=== PATIENT | male | born 1980 | race African-American/Black ===

== ENCOUNTER → 2019-11-13 | Outpatient (CLI) | payer OTHER ==
--- NOTE | 2019-11-13 22:26 | CONS ---
CONSULTATION REASON FOR CONSULTATION: Sleep apnea. This is a 39-year-old -[place] male patient referred to me for concerns about sleep apnea. He snores very loudly and he lives with two of his daughters, who confirmed the loud snoring. He has been also noted to quit breathing at times; however, this has not been a consistent thing. He goes to bed between midnight and 1 a.m. and he wakes up at 5 a.m. in the morning. On weekends he gets out of bed around 6 a.m. He comes in with a positive family history that his father and brother have obstructive sleep apnea. No major hypersomnia or sleepiness during the day. No falling asleep while driving. His Denver score is only 2. No sleep paralysis. No hallucinations. No cataplexy. No recent weight gain or weight loss. No other major comorbidities. PAST MEDICAL HISTORY: Negative. PAST SURGICAL HISTORY: Stomach surgery at a young age. DRUG ALLERGIES: NOT KNOWN. OUTPATIENT MEDICATION: Outpatient medications includes omeprazole 20 mg p.o. daily. SOCIAL HISTORY: Nonsmoker. No history of alcoholism. No history of IV drugs. FAMILY HISTORY: Positive for obstructive sleep apnea in his father and a brother. REVIEW OF SYSTEMS: Fourteen-point review of systems was done. Positive findings were all mentioned above in the history of present illness. He has no grinding of the teeth. No restlessness in the lower extremities. No anxiety or panic. He has occasional heartburn, for which he is taking omeprazole. No other seizure activity, head trauma, meningitis, recent weight gain or weight loss, sleep paralysis, hallucinations or cataplexy. Denver score is only 2. PHYSICAL EXAMINATION: VITAL SIGNS: BP is 123/85, pulse 95, respirations 14, temperature 98.2, saturation 95% on room air. Height is 5 feet 7 inches, weight 223. Denver score is 2. BMI is 42.5. Neck size is 17. GENERAL APPEARANCE: Calm, comfortable. HEAD: Atraumatic, normocephalic. Mallampati class IV. LUNGS: Clear to auscultation. HEART: Heart sounds are regular rate and rhythm. Normal S1, S2. No S3, S4. No murmurs. ABDOMEN: Soft, nontender. No organomegaly. EXTREMITIES: No edema. No cyanosis or clubbing. NEUROLOGIC: Awake and alert. There is no focal neurological deficit. PSYCHIATRIC: Negative for anxiety or depression. IMPRESSION: 1. Loud snoring with a question of obstructive sleep apnea, under investigation. 2. No major hypersomnia. Denver score is 2. 3. Occasional heartburn. PLAN: 1. Encourage weight loss. 2. Sleep on the side. 3. Avoid alcoholic beverages or muscle relaxants at night time. 4. Implement good sleep hygiene measures. 5. Home sleep study to rule out the possibility of obstructive sleep apnea. Further recommendations are to follow. My overall suspicion for symptomatic obstructive sleep apnea is low. MMODL / IJN: [id number] /
== END | disposition home or self-care (01) ==
LOC: SLEEP 16:26
PROVIDERS: ATTEND Internal Medicine Critical Care Medicine
DX: R06.83 Snoring (principal); Z79.899 Other long term (current) drug therapy
CPT/HCPCS: 99211

== ENCOUNTER 2021-02-01 22:43 | Emergency (ER) | payer BC, OTHER ==
[2021-02-01 22:49] VITALS: BP 132/85; PULSE 61; RESP 18; TEMP 98.3
--- NOTE | 2021-02-01 23:02 | ED ---
Skin/Abscess/FB HPI - General Chief complaint: Skin/Abscess/Foreign Body Stated complaint: Lump on right arm Time Seen by Provider: 02/01/21 22:50 Source: patient Mode of arrival: ambulatory Limitations: no limitations - History of Present Illness Initial comments: 40yo male presenting for bump in left armpit. pt states he had his second moderna shot on tuesday. pt states he felt a lump in his armpit today. wanted it checked out. denies pain. pt denies additional complaints. - Related Data Allergies Allergy/AdvReac Type Severity Reaction Status Date / Time No Known Allergies Allergy Verified 02/01/21 22:46 Review of Systems ROS Statement: Those systems with pertinent positive or pertinent negative responses have been documented in the HPI. ROS Other: All systems not noted in ROS Statement are negative. Past Medical History Past Medical History: Hypertension History of Any Multi-Drug Resistant Organisms: None Reported Past Surgical History: No Surgical Hx Reported Past Psychological History: No Psychological Hx Reported Smoking Status: Never smoker Past Alcohol Use History: Rare Past Drug Use History: None Reported General Exam - General Exam Comments Initial Comments: General: The patient is awake and alert, in no distress, and does not appear acutely ill. Eye: Pupils are equal, round and reactive to light, extra-ocular movements are intact. No nystagmus. There is normal conjunctiva bilaterally. No signs of icterus. Ears, nose, mouth and throat: There are moist mucous membranes and no oral lesions. Neck: The neck is supple, there is no tenderness or JVD. Cardiovascular: There is a regular rate and rhythm. No murmur, rub or gallop is appreciated. Respiratory: Lungs are clear to auscultation, respirations are non-labored, breath sounds are equal. No wheezes, stridor, rales, or rhonchi. Musculoskeletal: Normal ROM, no tenderness. Strength 5/5. Sensation intact. Pulses equal bilaterally 2+. Neurological: A&O x 3. CN II-XII intact, There are no obvious motor or sensory deficits. Coordination appears grossly intact. Speech is normal. Skin: Skin is warm and dry and no rashes or lesions are noted. enlarged nontender mobile node in left axillary region. Psychiatric: Cooperative, appropriate mood & affect, normal judgment. Limitations: no limitations Course Vital Signs 02/01/21 22:46 Temperature 98.3 F Pulse Rate 61 Respiratory 18 Rate Blood Pressure 132/85 O2 Sat by Pulse 96 Oximetry Medical Decision Making - Medical Decision Making PE revealed what felt like an enlarged lymph node did nto appear red or like an abscess. pt recently had covid vaccine in left arm. suspect immune response. recommend US/labs in 2 weeks if symptoms persist (lump stays). pt agreeable to care plan and discharge. Disposition Clinical Impression: Lymph nodes enlarged Disposition: HOME SELF-CARE Condition: Good Instructions (If sedation given, give patient instructions): Lymphadenopathy (ED) Additional Instructions: Please use medication as discussed. Please follow-up with family doctor in the next 2 days, recommend if lymph node doesnt resolve to seek US/labs with PCP at this time is felt likely immune response to vaccine. Please return to emergency room if the symptoms increase or worsen or for any other concerns. Is patient prescribed a controlled substance at d/c from ED?: No Referrals: Veronica Roe MD [Primary Care Provider] - 1-2 days Time of Disposition: 23:02
== END 2021-02-01 23:28 | disposition home or self-care (01) ==
LOC: EC 22:43
DX: R59.9 Enlarged lymph nodes, unspecified (principal); I10 Essential (primary) hypertension
CPT/HCPCS: 99282

== ENCOUNTER 2021-05-25 21:13 | Emergency (ER) | payer BC, OTHER ==
[2021-05-25 21:29] VITALS: TEMP 98.2
[2021-05-25 22:14] LABS: Appearance,Urine Clear (Clear); Bilirubin,Urine Negative (Negative); Blood,Urine Negative (Negative); Color,Urine Light Yellow; Glucose,Urine (UA) Negative (Negative); Ketones,Urine Negative (Negative); Leukocyte Esterase,Urine Negative (Negative); Nitrite,Urine Negative (Negative); PH, Urine 6.5 (5.0-8.0); Protein,Urine Negative (Negative); Specific Gravity,Urine 1.022 (1.001-1.035); Urobilinogen,Urine <2.0 mg/dL (<2.0)
[2021-05-25 22:22] LABS: Basophils % (A) 1 %; Eosinophils # (A) 0.1 k/uL (0-0.7); Eosinophils % (A) 2 %; HCT 46.4 % (39.0-53.0); HGB 14.9 gm/dL (13.0-17.5); Lymphocytes # (A) 1.8 k/uL (1.0-4.8); Lymphocytes % (A) 34 %; MCH 29.3 pg (25.0-35.0); MCHC 32.2 g/dL (31.0-37.0); Mean Platelet Volume 7.1; Monocytes # (A) 0.5 k/uL (0-1.0); Monocytes % (A) 10 %; Neutrophils # (A) 2.7 k/uL (1.3-7.7); Neutrophils % (A) 51 %; Platelet Count 271 k/uL (150-450); RDW 14.2 % (11.5-15.5); WBC 5.4 k/uL (3.8-10.6)
[2021-05-25 22:23] LABS: ALT 28 U/L (4-49); AST 37 U/L (17-59); African American GFR (CKD) >90 (>60 ml/min/1.73 sqM); Albumin 4.7 g/dL (3.5-5.0); Alkaline Phosphatase 57 U/L (38-126); Amylase 98 U/L (30-110); Anion Gap 11 mmol/L; Blood Urea Nitrogen 13 mg/dL (9-20); Calcium 9.3 mg/dL (8.4-10.2); Carbon Dioxide 26 mmol/L (22-30); Chloride 103 mmol/L (98-107); Glucose 107 mg/dL (74-99); Lipase 196 U/L (23-300); Non-African American GFR(CKD) >90 (>60 ml/min/1.73 sqM); Potassium 4.1 mmol/L (3.5-5.1); Sodium 140 mmol/L (137-145); Total Bilirubin 0.3 mg/dL (0.2-1.3); Total Protein 7.7 g/dL (6.3-8.2)
--- NOTE | 2021-05-25 22:34 | XR ---
EXAMINATION TYPE: XR KUB DATE OF EXAM: 05/25/2021 COMPARISON: NONE HISTORY: Abdominal pain TECHNIQUE: 3 views upright FINDINGS: There is no sign of intestinal obstruction or pneumoperitoneum. Fecal pattern is normal. Th ere is no evidence of a mass. There are no pathologic calcifications over the kidneys. Lung bases aquiles ear clear. IMPRESSION: Nonacute abdomen.
--- NOTE | 2021-05-25 22:59 | ED ---
Abdominal Pain HPI - General Chief Complaint: Abdominal Pain Stated Complaint: Abd Pain Time Seen by Provider: 05/25/21 21:34 Source: patient, RN notes reviewed Mode of arrival: ambulatory Limitations: no limitations - History of Present Illness Initial Comments: Patient is a 40-year-old male that presents emergency, complaining of a 1-2 week history of upper abdominal pain. He notes that it comes and goes. He denied any nausea vomiting. Patient was otherwise a well-appearing 40-year-old male while sitting up in bed in exam interview eating [employer]. He notes that he can emergency room to get x-ray to make sure they looked okay. Patient denied chest pain shortness of breath headache diarrhea constipation fever fatigue chills. - Related Data Home Medications Medication Instructions Recorded Confirmed Omeprazole [PriLOSEC] 20 mg PO DAILY 05/25/21 05/25/21 lisinopriL 20 mg PO DAILY 05/25/21 05/25/21 Allergies Allergy/AdvReac Type Severity Reaction Status Date / Time No Known Allergies Allergy Verified 05/25/21 22:13 Review of Systems ROS Statement: Those systems with pertinent positive or pertinent negative responses have been documented in the HPI. ROS Other: All systems not noted in ROS Statement are negative. Past Medical History Past Medical History: Hypertension History of Any Multi-Drug Resistant Organisms: None Reported Past Surgical History: No Surgical Hx Reported Past Psychological History: No Psychological Hx Reported Smoking Status: Never smoker Past Alcohol Use History: Rare Past Drug Use History: None Reported General Exam Limitations: no limitations General appearance: alert, in no apparent distress, obese Head exam: Present: atraumatic, normocephalic, normal inspection Eye exam: Present: normal appearance, PERRL, EOMI. Absent: scleral icterus, conjunctival injection, periorbital swelling Neck exam: Present: normal inspection Respiratory exam: Present: normal lung sounds bilaterally. Absent: respiratory distress, wheezes, rales, rhonchi, stridor Cardiovascular Exam: Present: regular rate, normal rhythm, normal heart sounds. Absent: systolic murmur, diastolic murmur, rubs, gallop, clicks GI/Abdominal exam: Present: soft, normal bowel sounds. Absent: distended, tenderness, guarding, rebound, rigid Extremities exam: Present: normal inspection, full ROM, normal capillary refill. Absent: tenderness, pedal edema, joint swelling, calf tenderness Neurological exam: Present: alert, oriented X3 Psychiatric exam: Present: normal affect, normal mood Skin exam: Present: warm, dry, intact, normal color. Absent: rash Course Vital Signs 05/25/21 21:27 Temperature 98.2 F Pulse Rate 97 Respiratory 20 Rate Blood Pressure 150/87 O2 Sat by Pulse 98 Oximetry Medical Decision Making - Medical Decision Making 40-year-old male complaining of upper abdominal pain for the past 1-2 weeks. Labs, KUB ordered. Labs unremarkable. KUB negative for any acute process. Case discussed with Dr. Alexandre, patient discharge home. Patient was well-appearing while lying in bed and felt relieved that his labs revealed his x-ray was negative. - Lab Data Result diagrams: 05/25/21 21:46 05/25/21 21:46 Lab Results 05/25/21 05/25/21 05/25/21 Range/Units 21:46 21:46 21:46 WBC 5.4 (3.8-10.6) k/uL RBC 5.10 (4.30-5.90) m/uL Hgb 14.9 (13.0-17.5) gm/dL Hct 46.4 (39.0-53.0) % MCV 91.0 (80.0-100.0) fL MCH 29.3 (25.0-35.0) pg MCHC 32.2 (31.0-37.0) g/dL RDW 14.2 (11.5-15.5) % Plt Count 271 (150-450) k/uL MPV 7.1 Neutrophils % 51 % Lymphocytes % 34 % Monocytes % 10 % Eosinophils % 2 % Basophils % 1 % Neutrophils # 2.7 (1.3-7.7) k/uL Lymphocytes # 1.8 (1.0-4.8) k/uL Monocytes # 0.5 (0-1.0) k/uL Eosinophils # 0.1 (0-0.7) k/uL Basophils # 0.0 (0-0.2) k/uL Sodium 140 (137-145) mmol/L Potassium 4.1 (3.5-5.1) mmol/L Chloride 103 (98-107) mmol/L Carbon Dioxide 26 (22-30) mmol/L Anion Gap 11 mmol/L BUN 13 (9-20) mg/dL Creatinine 0.87 (0.66-1.25) mg/dL Est GFR (CKD-EPI)AfAm >90 (>60 ml/min/1.73 sqM) Est GFR (CKD-EPI)NonAf >90 (>60 ml/min/1.73 sqM) Glucose 107 H (74-99) mg/dL Calcium 9.3 (8.4-10.2) mg/dL Total Bilirubin 0.3 (0.2-1.3) mg/dL AST 37 (17-59) U/L ALT 28 (4-49) U/L Alkaline Phosphatase 57 (38-126) U/L Total Protein 7.7 (6.3-8.2) g/dL Albumin 4.7 (3.5-5.0) g/dL Amylase 98 (30-110) U/L Lipase 196 (23-300) U/L Urine Color Light Yellow Urine Appearance Clear (Clear) Urine pH 6.5 (5.0-8.0) Ur Specific [place] 1.022 (1.001-1.035) Urine Protein Negative (Negative) Urine Glucose (UA) Negative (Negative) Urine Ketones Negative (Negative) Urine Blood Negative (Negative) Urine Nitrite Negative (Negative) Urine Bilirubin Negative (Negative) Urine Urobilinogen <2.0 (<2.0) mg/dL Ur Leukocyte Esterase Negative (Negative) - Radiology Data Radiology results: report reviewed, image reviewed KUB: Nonacute abdomen. Disposition Clinical Impression: Abdominal pain Disposition: HOME SELF-CARE Condition: Stable Instructions (If sedation given, give patient instructions): Abdominal Pain (ED) Additional Instructions: Please return to the Emergency Department if symptoms worsen or any other concerns. Follow-up with primary care 1-2 days. Is patient prescribed a controlled substance at d/c from ED?: No Referrals: Veronica Roe MD [Primary Care Provider] - 1-2 days Time of Disposition: 22:58
[2021-05-25 23:05] VITALS: BP 141/84; PULSE 99; RESP 16
== END 2021-05-25 23:05 | disposition home or self-care (01) ==
LOC: EC 21:13
DX: R10.10 Upper abdominal pain, unspecified (principal); I10 Essential (primary) hypertension; Z79.899 Other long term (current) drug therapy
CPT/HCPCS: 36415; 74018; 80053; 81003; 82150; 83690; 85025; 99284

== ENCOUNTER 2022-10-13 12:54 | Emergency (ER) | payer BC, OTHER ==
[2022-10-13 12:57] VITALS: BP 152/86; PULSE 98; RESP 18; TEMP 98.9
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
[2022-10-13] MEDS ORDERED: HYDROcodone/APAP 5-325MG 1 EACH TAB PO STA (13:52)
[2022-10-13] MEDS ORDERED: ACET/COD 300 MG/30 MG STARTER PACK 6 TAB BTL PO STA (13:53)
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
== END 2022-10-13 14:05 | disposition home or self-care (01) ==
LOC: EC 12:54
DX: S43.401A Unspecified sprain of right shoulder joint, initial encounter (principal); I10 Essential (primary) hypertension; Z79.899 Other long term (current) drug therapy; V89.2XXA Person injured in unspecified motor-vehicle accident, traffic, initial encounter
CPT/HCPCS: 99284

== ENCOUNTER 2024-04-17 09:32 | Day surgery (SDC) | payer BC ==
[2024-04-17 10:03] VITALS: TEMP 97.6
[2024-04-17] MEDS: IV FLUID CONTINUATION 1,000 ML IV ONE (10:05)
[2024-04-17] MEDS: LACTATED RINGERS 1,000 ML IV SCH (10:06)
[2024-04-17] MEDS ORDERED: PROPOFOL 10 MG/ML 20 ML VIAL IV ONE (10:29)
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
--- NOTE | 2024-04-17 10:48 | P.PCN ---
Date of Procedure: 04/17/24 Procedure(s) Performed: PREOPERATIVE DIAGNOSIS: Colon cancer screening POSTOPERATIVE DIAGNOSIS: Small ascending colon polyp PROCEDURE: Colonoscopy with biopsy ANESTHESIA: MAC SURGEON: Wander De Leon M.D. SPECIMENS: Polyp ENDOSCOPIC PROCEDURE: The patient was placed on the endoscopy table in the left decubitus position. The Olympus colonoscope was inserted into the anus and passed under direct visualization to the base of the cecum. The appendiceal orifice was visualized. From that point the scope was slowly withdrawn inspecting all surfaces carefully. There were no neoplastic inflammatory or polypoid lesions throughout the cecum. In the ascending colon a small polyp was seen and removed using the cold biopsy forceps. The remainder of the ascending transverse descending and rectum appeared normal. There was no visible diverticulosis. Digital rectal examination was normal. The patient was taken to the recovery room in stable condition per anesthesia guidelines. RECOMMENDATIONS: Await biopsy results. Repeat colonoscopy pending pathology findings.
[2024-04-17 11:07] VITALS: BP 140/92; PULSE 80; RESP 16
== END 2024-04-17 11:35 | disposition home or self-care (01) ==
LOC: ORWHC2ENDO 09:32
PROVIDERS: ATTEND Surgery
DX: Z12.11 Encounter for screening for malignant neoplasm of colon (principal); K63.5 Polyp of colon; K21.9 Gastro-esophageal reflux disease without esophagitis; I10 Essential (primary) hypertension; Z79.899 Other long term (current) drug therapy
CPT/HCPCS: 45380; J2704; 88305